=== PATIENT | female | born 1990 | race Caucasian/White ===

== ENCOUNTER 2025-04-22 20:58 | Emergency (ER) | payer OTHER ==
[~2025-04-22] VITALS: Ht 144.8 cm; Wt 44.5 kg
[~2025-04-22 20:58] MED LIST: GABA-534 PO; LORA2TAB PO
[2025-04-22 21:04] VITALS: BP 124/86
[2025-04-22] MEDS ORDERED: CLIN-188 PO (21:55)
[2025-04-22] MEDS ORDERED: CLINDAMYCIN HCL 300 MG CAPSULE ONE (21:58)
[2025-04-22] MEDS: CLINDAMYCIN HCL 150 MG CAPSULE PO ONE (21:59)
[2025-04-22 22:06] VITALS: BP 122/85; TEMP 98; O2SAT 99
== END 2025-04-22 22:07 | disposition home or self-care (01) ==
LOC: ER 21:10
DX: R21 Rash and other nonspecific skin eruption (principal); F15.10 Other stimulant abuse, uncomplicated; Z72.0 Tobacco use; Z79.899 Other long term (current) drug therapy; Z88.2 Allergy status to sulfonamides; Z88.7 Allergy status to serum and vaccine
CPT/HCPCS: A4606; A4663